=== PATIENT | female | born 1995 | race African-American/Black ===

== ENCOUNTER 2017-04-09 16:51 | Emergency (ER) | payer BC ==
[2017-04-09 17:11] VITALS: BP 116/69
--- NOTE | 2017-04-09 17:30 | ER Document Report ---
HPI - HPI Patient complains to provider of: lost voice Onset: Other Onset/Duration: Gradual Pain Level: 0 Context: 22-year-old non-smoker started getting sick on Wednesday and now has lost her voice for several days. Seems to be better in the morning but then when she goes to work it converges on the phone she gets more hoarse and loses her voice. No fever. No cough. Associated Symptoms: None Exacerbated by: Other - Talking on the phone Relieved by: Denies Similar symptoms previously: No Recently seen / treated by doctor: No - ROS ROS below otherwise negative: Yes Systems Reviewed and Negative: Yes All other systems reviewed and negative Past Medical History - General Information source: Patient - Social History Smoking Status: Never Smoker Frequency of alcohol use: None Drug Abuse: None Occupation: [employer] Lives with: Family Family History: Reviewed & Not Pertinent - Medical History Medical History: Negative Surgical Hx: Negative Vertical Provider Document - CONSTITUTIONAL Agree With Documented VS: Yes Exam Limitations: No Limitations - INFECTION CONTROL TRAVEL OUTSIDE OF THE [place] IN LAST 30 DAYS: No - HEENT HEENT: Pharyngeal Erythema - Minimal. negative: Conjuctival Injection, Tympanic Membrane Red, Tympanic Membrane Bulging - NECK Neck: Supple. negative: Lymphadenopathy-Left, Lymphadenopathy-Right - RESPIRATORY Respiratory: Breath Sounds Normal, No Respiratory Distress O2 Sat by Pulse Oximetry: 100 - CARDIOVASCULAR Cardiovascular: Regular Rate, Regular Rhythm - GI/ABDOMEN Gastrointestinal: Abdomen Soft, Abdomen Non-Tender, No Organomegaly - NEURO Level of Consciousness: Awake, Alert, Appropriate - DERM Integumentary: Warm, Dry Course - Vital Signs Vital signs: Temp Pulse Resp BP Pulse Ox 98.8 F 81 18 116/69 100 04/09/17 17:07 04/09/17 17:07 04/09/17 17:07 04/09/17 17:07 04/09/17 17:07 Discharge - Discharge Clinical Impression: Laryngitis Condition: Good Disposition: HOME, SELF-CARE Instructions: Laryngitis ([facility]), ENT, Acetaminophen, Use of Rplt-Pvb-Bondpgc Ibuprofen ([facility]) Additional Instructions: Plenty of rest Fluids [id number] Motrin and Tylenol for discomfort Voice rest for 3 days Return to the emergency room if worse ENT referral if this persists beyond next week Please complete the patient satisfaction survey if you get one, and return it.. If you do not receive a survey, then you can go to the [facility] website, [email or web address] and place your comments about your very good care. Thank you very much. It was a pleasure being your medical provider today. Forms: Return to Work
== END 2017-04-09 18:00 | disposition home or self-care (01) ==
LOC: ER 16:51
DX: J04.0 Acute laryngitis (principal)
CPT/HCPCS: 99283

== ENCOUNTER 2017-07-28 10:55 | Emergency (ER) | payer BC, MEDICAID ==
[2017-07-28 11:07] VITALS: BP 115/64
[2017-07-28 12:28] LABS: ABSOLUTE EOSINOPHILS # (AUTO) 0.1 10^3/uL (0.0-0.6); ABSOLUTE LYMPHOCYTES (AUTO) 2.2 10^3/uL (0.5-4.7); ABSOLUTE MONOCYTES (AUTO) 0.6 10^3/uL (0.1-1.4); ABSOLUTE NEUT (AUTO) 3.2 10^3/uL (1.7-8.2); BASOPHILS % (AUTO) 0.8 % (0-2); EOSINOPHILS % (AUTO) 1.3 % (0-6); HEMATOCRIT 33.4 % (36.0-47.0); HEMOGLOBIN 11.5 g/dL (12.0-15.5); LYMPHOCYTES % (AUTO) 35.7 % (13-45); MEAN CORPUSCULAR HEMOGLOBIN 30.5 pg (27.0-33.4); MEAN CORPUSCULAR HGB CONC 34.6 g/dL (32.0-36.0); MEAN CORPUSCULAR VOLUME 88 fl (80-97); MONOCYTES % (AUTO) 9.5 % (3-13); PLATELET COUNT 190 10^3/uL (150-450); RED BLOOD COUNT 3.79 10^6/uL (3.72-5.28); RED CELL DISTRIBUTION WIDTH 12.8 % (11.5-14.0); SEGMENTED NEUTROPHILS % (AUTO) 52.7 % (42-78); TOTAL CELLS COUNTED % (AUTO) 100 %; WHITE BLOOD COUNT 6.1 10^3/uL (4.0-10.5)
[2017-07-28 12:44] LABS: ALANINE AMINOTRANSFERASE 17 U/L (9-52); ALBUMIN 4.1 g/dL (3.5-5.0); ALKALINE PHOSPHATASE 37 U/L (38-126); ANION GAP 10 (5-19); ASPARTATE AMINO TRANSFERASE 14 U/L (14-36); BILIRUBIN,DIRECT 0.1 mg/dL (0.0-0.4); BILIRUBIN,TOTAL 0.3 mg/dL (0.2-1.3); BLOOD UREA NITROGEN 7 mg/dL (7-20); CALCIUM 9.7 mg/dL (8.4-10.2); CARBON DIOXIDE 25 mmol/L (22-30); CHLORIDE 103 mmol/L (98-107); GLUCOSE 79 mg/dL (75-110); POTASSIUM 4.2 mmol/L (3.6-5.0); SODIUM 137.6 mmol/L (137-145); TOTAL PROTEIN 6.8 g/dL (6.3-8.2)
--- NOTE | 2017-07-28 14:16 | RADIOLOGY REPORT (SQ) ---
EXAM DESCRIPTION: U/S 1TRIMESTER/1GEST W/DOPPLER COMPLETED DATE/TIME: 07/28/2017 2:00 pm REASON FOR STUDY: pain/preg COMPARISON: None. TECHNIQUE: Transabdominal static and realtime grayscale images acquired of the pelvis. Additional se lected spectral and color Doppler images recorded. All images stored on PACs. bHCG: None available LIMITATIONS: None. FINDINGS: FETUS: Living intrauterine . EGA: 10 weeks 3 days ONEL: 02/20/2018 FHR: 163 beats per minute. SUBCHORIONIC BLEED: None SIZE OF BLEED: Not applicable. UTERUS: No masses. No anomalies. Uterus measures 12 x 7 x 7 cm in size CERVICAL LENGTH: 3.2 cm in length. Closed. RIGHT ADNEXA: Not visualized due to bowel gas LEFT ADNEXA: Left ovary is 6.3 x 4.1 x 3.9 cm in size. Left ovary has a 5 cm simple cyst. There is normal left ovary color flow. No adnexal free fluid. FREE FLUID: None. OTHER: During the exam, a [place] contraction along the anterior lower uterine segment came and went. IMPRESSION: LIVING INTRAUTERINE . EGA 10 weeks 3 days 5 cm left ovarian cyst without evidence of left ovary torsion. Right adnexa not seen due to bowel gas. Trimester of : First - 0 to 13 weeks. TECHNICAL DOCUMENTATION: JOB ID: [id number] [employer]- All Rights Reserved Reading location - IP/workstation name: [email or web address]
[2017-07-28 16:11] LABS: APPEARANCE,URINE SLIGHTLY-CLOUDY; BILIRUBIN,URINE NEGATIVE (NEGATIVE); COLOR,URINE YELLOW; GLUCOSE, URINE NEGATIVE (NEGATIVE); KETONES,URINE TRACE mg/dL (NEGATIVE); LEUKOCYTE ESTERASE,URINE NEGATIVE (NEGATIVE); NITRITE,URINE NEGATIVE (NEGATIVE); PROTEIN,URINE NEGATIVE (NEGATIVE); URINE SPECIFIC GRAVITY 1.018
--- NOTE | 2017-07-28 16:11 | ER Document Report ---
ED General - General Chief Complaint: Pelvic Pain Stated Complaint: ABDOMINAL PAIN Time Seen by Provider: 07/28/17 11:39 Mode of Arrival: Ambulatory Information source: Patient Notes: Patient presents with bilateral lower abdominal cramping pain. She states she is currently . She states she is approximate 11 weeks . She states she has not had an ultrasound yet with this . The abdominal pain is bilateral and crampy. Is intermittent. Nothing makes better or worse. It does not radiate. No significant vaginal bleeding or discharge. TRAVEL OUTSIDE OF THE [place] IN LAST 30 DAYS: No - Related Data Allergies/Adverse Reactions: No Known Allergies Allergy (Unverified 04/09/17 16:56) Past Medical History - General Information source: Patient - Social History Smoking Status: Unknown if Ever Smoked Frequency of alcohol use: None Drug Abuse: None Family History: Reviewed & Not Pertinent Patient has suicidal ideation: No Patient has homicidal ideation: No Renal/ Medical History: Denies: Hx Peritoneal Dialysis Review of Systems - Review of Systems Constitutional: denies: Chills, Fever Cardiovascular: denies: Chest pain, Palpitations Respiratory: denies: Cough, Short of breath -: Yes All other systems reviewed and negative Physical Exam - Vital signs Vitals: Temp Pulse Resp BP Pulse Ox 98.2 F 75 16 115/64 99 07/28/17 11:06 07/28/17 11:06 07/28/17 11:06 07/28/17 11:06 07/28/17 11:06 Interpretation: Normal - General General appearance: Appears well, Alert - HEENT Head: Normocephalic, Atraumatic Eyes: Normal Pupils: PERRL - Respiratory Respiratory status: No respiratory distress Chest status: Nontender Breath sounds: Normal Chest palpation: Normal - Cardiovascular Rhythm: Regular Heart sounds: Normal auscultation Murmur: No - Abdominal Inspection: Normal Distension: No distension Bowel sounds: Normal Tenderness: Nontender Organomegaly: No organomegaly - Back Back: Normal, Nontender - Extremities General upper extremity: Normal inspection, Nontender, Normal color, Normal ROM , Normal temperature General lower extremity: Normal inspection, Nontender, Normal color, Normal ROM , Normal temperature, Normal weight bearing. No: Alistair's sign - Neurological Neuro grossly intact: Yes Cognition: Normal Orientation: AAOx4 Zeinab Coma Scale Eye Opening: Spontaneous Sutter Coma Scale Verbal: Oriented Zeinab Coma Scale Motor: Obeys Commands Zeinab Coma Scale Total: 15 Speech: Normal Motor strength normal: LUE, RUE, LLE, RLE Sensory: Normal - Psychological Associated symptoms: Normal affect, Normal mood - Skin Skin Temperature: Warm Skin Moisture: Dry Skin Color: Normal Course - Vital Signs Vital signs: Temp Pulse Resp BP Pulse Ox 98.2 F 75 16 115/64 99 07/28/17 11:06 07/28/17 11:06 07/28/17 11:06 07/28/17 11:06 07/28/17 11:06 - Laboratory Result Diagrams: 07/28/17 12:10 07/28/17 12:10 Laboratory results interpreted by me: 07/28/17 07/28/17 07/28/17 12:10 12:10 15:50 Hgb 11.5 L Hct 33.4 L Alkaline Phosphatase 37 L Beta HCG, Quant [id number] H Urine Ketones TRACE H Urine Urobilinogen 4.0 H - Diagnostic Test Radiology reviewed: Image reviewed, Reports reviewed - Ultrasound shows no evidence of ectopic. She does have appear to have a viable IUP. Discharge - Discharge Clinical Impression: Threatened Condition: Stable Disposition: HOME, SELF-CARE Instructions: Threatened Miscarriage ([facility]) Forms: Return to Work
== END 2017-07-28 16:40 | disposition home or self-care (01) ==
LOC: ER 10:55
DX: O20.0 Threatened abortion (principal); O26.891 Other specified pregnancy related conditions, first trimester; R10.2 Pelvic and perineal pain; R10.31 Right lower quadrant pain; R10.32 Left lower quadrant pain; Z3A.11 11 weeks gestation of pregnancy
CPT/HCPCS: 36415; 76801; 80053; 81001; 84702; 85025; 93976; 99284

== ENCOUNTER 2018-06-17 21:02 | Emergency (ER) | payer OTHER, MEDICAID ==
[2018-06-17 21:53] VITALS: BP 117/68
[2018-06-17] MEDS ORDERED: ACETAMINOPHEN 325 MG TABLET PO ONE (23:51)
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
[2018-06-18] MEDS ORDERED: DIPH/PERTUSS(ACELL)/TETANUS VAC/PF 0.5 ML SYR (>=10YO) IM ONE (01:07)
== END 2018-06-18 01:41 | disposition home or self-care (01) ==
LOC: ER 21:02
DX: S00.511A Abrasion of lip, initial encounter (principal); R51 Headache; V53.6XXA Passenger in pick-up truck or van injured in collision with car, pick-up truck or van in traffic accident, initial encounter; Z23 Encounter for immunization
CPT/HCPCS: 70450; 70486; 72125; 90471; 90715; 99283